=== PATIENT | female | born 1990 | race Two or more races ===

== ENCOUNTER 2017-02-03 08:53 | Emergency (ER) | payer OTHER ==
[~2017-02-03] VITALS: Ht 231.1 cm; Wt 79.8 kg
[2017-02-03 09:44] VITALS: BP 171/133
== END 2017-02-03 09:44 | disposition left against medical advice (07) ==
LOC: ED 08:53
DX: Z53.21 Procedure and treatment not carried out due to patient leaving prior to being seen by health care provider (principal)

== ENCOUNTER 2017-04-28 07:03 | Emergency (ER) | payer MEDICAID ==
[~2017-04-28] VITALS: Ht 160 cm; Wt 83.9 kg
[2017-04-28 07:14] VITALS: BP 145/93
== END 2017-04-28 07:12 | disposition left against medical advice (07) ==
LOC: ED 07:03
DX: O26.893 Other specified pregnancy related conditions, third trimester (principal); R10.30 Lower abdominal pain, unspecified; Z3A.40 40 weeks gestation of pregnancy